=== PATIENT | male | born 1995 | race African-American/Black ===

== ENCOUNTER 2017-04-27 17:11 | Inpatient (IN) ==
[~2017-04-27 17:11] MED LIST: ONDANSETRON 4 MG/2 ML VIAL IV PRN
[2017-04-27] MEDS ORDERED: SODIUM CHLORIDE 0.9% 1,000 ML IV ONE (17:15)
[2017-04-27] MEDS ORDERED: SODIUM CHLORIDE 0.9% 250 ML IV PRN (17:16)
[2017-04-27] MEDS ORDERED: SODIUM CHLORIDE 0.9% IV PRN (17:29)
[2017-04-27] MEDS ORDERED: MAGNESIUM SULF RIDER 2 GM in PREMIX 1 EACH IV PRN (17:29)
[2017-04-27] MEDS ORDERED: POTASSIUM CHLORIDE RIDER 10 MEQ in PREMIX 1 EACH IV PRN (17:29)
[2017-04-27] MEDS ORDERED: SODIUM PHOSPHATE IV PRN (17:29)
[2017-04-27] MEDS ORDERED: DEXTROSE 50% 25 GM/50 ML VIAL IV PRN (17:29)
[2017-04-27] MEDS ORDERED: INSULIN REGULAR 100 UNIT/ML IV ONE (17:29)
[2017-04-27] MEDS ORDERED: MAGNESIUM SULF RIDER 4 GM in PREMIX 1 EACH IV PRN (17:29)
[2017-04-27] MEDS ORDERED: SODIUM BICARB INJ 100 MEQ in STERILE WATER INJ 400 ML IV PRN (17:29)
[2017-04-27] MEDS ORDERED: SODIUM CHLORIDE 0.9% 1,000 ML IV SCH ×2 (17:30→22:30)
[2017-04-27 17:52] LABS: ABG Base Excess -10.8 MMOL/L (-2.5-2.5); ABG HCO3 13.1 MMOL/L (20-26); ABG Oxygen Saturation 97.9 % (95-100); ABG PH 7.425 (7.35-7.45); ABG PO2 118.2 MM HG (80-95); ABG TCO2 13.7 MMOL/L (23-27)
[2017-04-27 17:54] LABS: ABG PCO2 20.4 MM HG (35-48)
[2017-04-27] MEDS: INSULIN REGULAR DRIP 100 ML IV SCH (18:06)
[2017-04-27] MEDS: SODIUM CHLORIDE 0.9% 1,000 ML IV SCH ×2 (19:20→21:23)
[2017-04-27 20:25] LABS: Hematocrit 9.8 VOL% (42.0-52.0); Hemoglobin 2.9 GM/DL (14.0-18.0)
[2017-04-27 20:31] LABS: INR 1.6; PT Patient Result 16.9 SECS
[2017-04-27 20:44] LABS: Alanine Aminotransferase 20 U/L (16-61); Albumin 1.5 G/DL (3.4-5.0); Alkaline Phosphatase 81 U/L (45-117); Aspartate Amino Transferase 20 U/L (0-37); Bilirubin,Total < 0.39 MG/DL (0.2-1.0); Blood Urea Nitrogen 41 MG/DL (7-18); Calcium 6.9 MG/DL (8.5-10.1); Osmolality,Calculated 311.5 MOS/KG (273-304); Phosphorous 3.8 MG/DL (2.5-4.9); Potassium 4.8 MMOL/L (3.5-5.1); Sodium 139 MMOL/L (136-145); Thyroid Stimulating Hormone 0.146 uIU/ml (0.358-3.74); Total Protein 4.7 G/DL (6.4-8.3)
[2017-04-27 20:46] LABS: Glucose 555 MG/DL (74-106)
[2017-04-27] MEDS: VANCOMYCIN INJ 750 MG in SODIUM CHLORIDE 0.9% 250 ML IV SCH (21:07)
[2017-04-27] MEDS: PANTOPRAZOLE 40 MG VIAL IV SCH (21:07)
[2017-04-27] MEDS: PIPERACILLIN/TAZOBACTAM 3,375 MG in SODIUM CHLORIDE 0.9% 100 ML IV SCH (21:54)
[2017-04-27 22:27] LABS: Apearance,Urine CLEAR (Clear); Bilirubin,Urine Negative (Negative); Blood, Urine Negative (Negative); Glucose,Urine (UA) >=500 mg/dL (Negative); Hyaline Casts,Urine 2 /LPF (0-3); Ketones,Urine 5 mg/dL (Negative); Nitrite,Urine Negative (Negative); Protein,Urine Negative; RBC,Urine <1 /HPF (0-4); Urine Color Straw (Yellow); Urine Specific Gravity 1.015 (1.001-1.035); Urine Urobilinogen < 2.0 EU/DL (0.2-1.0); WBC,Urine <1 /HPF (0-6)
[2017-04-28 01:52] LABS: Calcium 6.1 MG/DL (8.5-10.1); Osmolality,Calculated 323.4 MOS/KG (273-304); Potassium 4.4 MMOL/L (3.5-5.1)
[2017-04-28 02:05] LABS: Hematocrit 25.1 VOL% (42.0-52.0); Hemoglobin 8.6 GM/DL (14.0-18.0)
[2017-04-28] MEDS: SODIUM CHLOR 0.45% KCL 20 MEQ 20 MEQ/1,000 ML BAG IV SCH ×2 (04:34→09:15)
[2017-04-28 05:17] LABS: Basophils % 0.2 % (0.0-0.8); Hematocrit 21.1 VOL% (42.0-52.0); Hemoglobin 7.1 GM/DL (14.0-18.0); Immature Granulocytes % 1.4 %; Lymphocytes # 2.2 10*3/uL (1.4-4.0); Lymphocytes % 10.8 % (21.2-54.2); Mean Corpuscular HGB Conc 33.6 GM/DL (32-36); Mean Corpuscular Hemoglobin 27 PG (27-34); Mean Corpuscular Volume 80.8 FL (87-102); Monocytes # 1.4 10*3/uL (0.11-0.8); Monocytes % 6.9 % (1.7-12.7); Neutrophils # 16.7 10*3/uL (1.4-7.4); Neutrophils % 80.7 % (38.7-73.9); Platelet Count 247 T/CUMM (130-400); Red Blood Count 2.61 MC/CUMM (3.8-5.5); Red Cell Distribution Width 21.5 % (9.3-17.3); White Blood Count 20.7 T/CUMM (4-12)
[2017-04-28 05:54] LABS: Anisocytosis 1+; Band Neutrophils 3 % (0-10); Lymphocytes 5 % (20-55); Magnesium 1.9 MG/DL (1.8-2.4); Metamyelocytes 1 %; Myelocytes 2 %; Nucleated Red Blood Cells 1 (0-5); Phosphorous 2.3 MG/DL (2.5-4.9); Segmented Neutrophils 89 % (50-85); Total Cells Counted 100
[2017-04-28 05:55] LABS: Hypochromasia 1+; Target Cells Few
[2017-04-28 05:56] LABS: Schistocytes 1+
[2017-04-28 05:57] LABS: Platelet Estimate Adequate
[2017-04-28] MEDS: PIPERACILLIN/TAZOBACTAM 3,375 MG in SODIUM CHLORIDE 0.9% 100 ML IV SCH ×2 (06:18→13:03)
[2017-04-28 06:22] LABS: Calcium 6.2 MG/DL (8.5-10.1); Osmolality,Calculated 318.1 MOS/KG (273-304); Potassium 4.2 MMOL/L (3.5-5.1)
[2017-04-28] MEDS: DEXT 5% NACL 0.45% KCL 20 MEQ 20 MEQ/1,000 ML BAG IV SCH ×2 (09:00→16:03)
[2017-04-28] MEDS: PANTOPRAZOLE 40 MG VIAL IV SCH (09:16)
[2017-04-28] MEDS: VANCOMYCIN INJ 750 MG in SODIUM CHLORIDE 0.9% 250 ML IV SCH ×2 (09:16→22:09)
[2017-04-28] MEDS: POTASSIUM PHOS/SOD PHOS POWDER 250 MG PACK PO SCH ×2 (11:10→22:15)
[2017-04-28 11:17] LABS: Calcium 6.3 MG/DL (8.5-10.1); Osmolality,Calculated 297.3 MOS/KG (273-304); Potassium 4.1 MMOL/L (3.5-5.1)
[2017-04-28] MEDS: INSULIN REGULAR DRIP 100 ML IV SCH ×2 (13:11→21:38)
[2017-04-28 13:26] LABS: Hemoglobin 5.2 GM/DL (14.0-18.0)
[2017-04-28 13:27] LABS: Hematocrit 15.6 VOL% (42.0-52.0)
[2017-04-28] MEDS ORDERED: SODIUM CHLORIDE 0.9% 250 ML IV PRN (13:53)
[2017-04-28 13:56] LABS: Calcium 6.2 MG/DL (8.5-10.1); Osmolality,Calculated 291.4 MOS/KG (273-304); Potassium 3.9 MMOL/L (3.5-5.1)
[2017-04-28] MEDS ORDERED: MIDAZOLAM 2 MG/2 ML VIAL ONE ×2 (16:51→17:21)
[2017-04-28] MEDS ORDERED: fentaNYL 100 MCG/2 ML VIAL IV ONE (16:56)
[2017-04-28] MEDS ORDERED: MIDAZOLAM 2 MG/2 ML VIAL IV ONE (17:02)
[2017-04-28] MEDS ORDERED: fentaNYL 100 MCG/2 ML VIAL ONE (17:21)
[2017-04-28] MEDS ORDERED: POLYETHYLENE GLYCOL POWDER 255 GM BOTTLE PO ONE (18:00)
[2017-04-28] MEDS: SODIUM CHLORIDE 0.45% 1,000 ML IV SCH ×2 (18:26→22:04)
[2017-04-28] MEDS: DEXTROSE 50% 25 GM/50 ML VIAL IV PRN (18:56)
[2017-04-28 20:27] LABS: Hematocrit 20.5 VOL% (42.0-52.0)
[2017-04-28 20:55] LABS: Calcium 6.4 MG/DL (8.5-10.1); Osmolality,Calculated 280.8 MOS/KG (273-304); Potassium 4.1 MMOL/L (3.5-5.1)
[2017-04-28] MEDS ORDERED: MAGNESIUM CITRATE 300 ML BOTTLE PO ONE (21:00)
[2017-04-28] MEDS ORDERED: HYDROmorphone 2 MG/1 ML VIAL IV ONE (21:10)
[2017-04-28] MEDS: PANTOPRAZOLE INJ 200 MG in SODIUM CHLORIDE 0.9% 250 ML IV SCH (22:16)
[2017-04-28] MEDS ORDERED: GLUCAGON 1 MG VIAL IM PRN (23:22)
[2017-04-28] MEDS ORDERED: DEXTROSE 50% 25 GM/50 ML VIAL IV PRN (23:22)
[2017-04-28] MEDS ORDERED: HYDROmorphone 2 MG/1 ML VIAL IV PRN (23:24)
[2017-04-29] MEDS: PIPERACILLIN/TAZOBACTAM 3,375 MG in SODIUM CHLORIDE 0.9% 100 ML IV SCH ×3 (00:10→17:12)
[2017-04-29] MEDS: INSULIN REGULAR 100 UNIT/ML SUBCUT SCH ×6 (01:20→20:45)
[2017-04-29 07:00] LABS: Basophils % 0.3 % (0.0-0.8); Eosinophils # 0.1 10*3/uL (0.0-0.87); Eosinophils % 0.8 % (0.00-10.9); Hematocrit 30.8 VOL% (42.0-52.0); Hemoglobin 10.7 GM/DL (14.0-18.0); Immature Granulocytes Absolute 0.14 #; Lymphocytes # 1.6 10*3/uL (1.4-4.0); Lymphocytes % 11.5 % (21.2-54.2); Mean Corpuscular HGB Conc 34.7 GM/DL (32-36); Mean Corpuscular Hemoglobin 28 PG (27-34); Mean Corpuscular Volume 80.8 FL (87-102); Mean Platelet Volume 9.7 FL (9.6-12.0); Monocytes # 0.7 10*3/uL (0.11-0.8); Monocytes % 4.7 % (1.7-12.7); NRBC # 0.22 10*3/uL; Neutrophils # 11.7 10*3/uL (1.4-7.4); Neutrophils % 81.7 % (38.7-73.9); Platelet Count 234 T/CUMM (130-400); Red Blood Count 3.81 MC/CUMM (3.8-5.5); Red Cell Distribution Width 17.3 % (9.3-17.3); White Blood Count 14.3 T/CUMM (4-12)
[2017-04-29 07:01] LABS: Hematocrit 31.1 VOL% (42.0-52.0); Hemoglobin 10.8 GM/DL (14.0-18.0)
[2017-04-29 07:34] LABS: Albumin 1.7 G/DL (3.4-5.0); Bilirubin,Total 0.4 MG/DL (0.2-1.0); Calcium 7.3 MG/DL (8.5-10.1); Osmolality,Calculated 279.5 MOS/KG (273-304); Potassium 3.9 MMOL/L (3.5-5.1); Total Protein 4.6 G/DL (6.4-8.3)
[2017-04-29] MEDS: SODIUM CHLORIDE 0.45% 1,000 ML IV SCH ×3 (09:12→23:35)
[2017-04-29] MEDS: VANCOMYCIN INJ 750 MG in SODIUM CHLORIDE 0.9% 250 ML IV SCH ×2 (10:04→21:00)
[2017-04-29] MEDS: INSULIN GLARGINE 100 UNIT/ML SUBCUT SCH ×2 (10:07→20:44)
[2017-04-29 13:56] LABS: Calcium 6.9 MG/DL (8.5-10.1); Osmolality,Calculated 285.4 MOS/KG (273-304)
[2017-04-29] MEDS ORDERED: LIDOCAINE 100 MG/5 ML SYRINGE ONE (15:10)
[2017-04-29] MEDS ORDERED: PROPOFOL 200 MG/20 ML VIAL IV ONE (15:10)
[2017-04-29] MEDS: PROPYLTHIOURACIL 50 MG TABLET PO SCH ×2 (16:20→20:44)
[2017-04-29] MEDS: SODIUM BICARBONATE 650 MG TABLET PO SCH ×2 (16:20→20:44)
[2017-04-30] MEDS: PIPERACILLIN/TAZOBACTAM 3,375 MG in SODIUM CHLORIDE 0.9% 100 ML IV SCH ×3 (00:59→16:53)
[2017-04-30] MEDS: INSULIN REGULAR 100 UNIT/ML SUBCUT SCH ×7 (01:29→23:50)
[2017-04-30] MEDS: SODIUM CHLORIDE 0.45% 1,000 ML IV SCH ×3 (03:50→17:59)
[2017-04-30] MEDS: PANTOPRAZOLE INJ 200 MG in SODIUM CHLORIDE 0.9% 250 ML IV SCH (05:00)
[2017-04-30 07:33] LABS: Basophils # 0.1 10*3/uL (0.0-0.2); Basophils % 0.3 % (0.0-0.8); Eosinophils # 0.1 10*3/uL (0.0-0.87); Eosinophils % 0.7 % (0.00-10.9); Hemoglobin 10.4 GM/DL (14.0-18.0); Immature Granulocytes % 0.8 %; Immature Granulocytes Absolute 0.14 #; Lymphocytes # 1.7 10*3/uL (1.4-4.0); Lymphocytes % 9.2 % (21.2-54.2); Mean Corpuscular HGB Conc 34.7 GM/DL (32-36); Mean Corpuscular Hemoglobin 28 PG (27-34); Mean Corpuscular Volume 79.8 FL (87-102); Mean Platelet Volume 10.7 FL (9.6-12.0); Monocytes % 5.7 % (1.7-12.7); NRBC # 0.12 10*3/uL; Neutrophils # 15.1 10*3/uL (1.4-7.4); Neutrophils % 83.3 % (38.7-73.9); Platelet Count 284 T/CUMM (130-400); Red Blood Count 3.76 MC/CUMM (3.8-5.5); Red Cell Distribution Width 17.5 % (9.3-17.3); White Blood Count 18.1 T/CUMM (4-12)
[2017-04-30 07:55] LABS: Calcium 7.1 MG/DL (8.5-10.1); Osmolality,Calculated 280.8 MOS/KG (273-304); Potassium 3.8 MMOL/L (3.5-5.1)
[2017-04-30] MEDS: SODIUM BICARBONATE 650 MG TABLET PO SCH ×3 (09:11→21:03)
[2017-04-30] MEDS: PROPYLTHIOURACIL 50 MG TABLET PO SCH ×3 (09:11→21:03)
[2017-04-30] MEDS: INSULIN GLARGINE 100 UNIT/ML SUBCUT SCH ×3 (09:12→21:04)
[2017-04-30] MEDS: VANCOMYCIN INJ 750 MG in SODIUM CHLORIDE 0.9% 250 ML IV SCH (13:17)
[2017-05-01] MEDS: VANCOMYCIN INJ 750 MG in SODIUM CHLORIDE 0.9% 250 ML IV SCH ×2 (00:30→11:46)
[2017-05-01] MEDS: PIPERACILLIN/TAZOBACTAM 3,375 MG in SODIUM CHLORIDE 0.9% 100 ML IV SCH ×2 (01:56→08:48)
[2017-05-01 05:30] LABS: Basophils # 0.1 10*3/uL (0.0-0.2); Basophils % 0.3 % (0.0-0.8); Eosinophils # 0.3 10*3/uL (0.0-0.87); Eosinophils % 1.7 % (0.00-10.9); Hematocrit 28.4 VOL% (42.0-52.0); Immature Granulocytes % 0.8 %; Immature Granulocytes Absolute 0.13 #; Lymphocytes # 1.7 10*3/uL (1.4-4.0); Lymphocytes % 10.4 % (21.2-54.2); Mean Corpuscular HGB Conc 35.2 GM/DL (32-36); Mean Corpuscular Hemoglobin 28 PG (27-34); Mean Corpuscular Volume 79.3 FL (87-102); Monocytes % 5.9 % (1.7-12.7); NRBC # 0.05 10*3/uL; Neutrophils # 12.9 10*3/uL (1.4-7.4); Neutrophils % 80.9 % (38.7-73.9); Platelet Count 305 T/CUMM (130-400); Red Blood Count 3.58 MC/CUMM (3.8-5.5); Red Cell Distribution Width 17.6 % (9.3-17.3)
[2017-05-01 06:09] LABS: Alanine Aminotransferase 68 U/L (16-61); Albumin 1.6 G/DL (3.4-5.0); Alkaline Phosphatase 79 U/L (45-117); Aspartate Amino Transferase 31 U/L (0-37); Bilirubin,Total < 0.39 MG/DL (0.2-1.0); Blood Urea Nitrogen 8 MG/DL (7-18); Calcium 7.2 MG/DL (8.5-10.1); Glucose 52 MG/DL (74-106); Osmolality,Calculated 271.5 MOS/KG (273-304); Phosphorous 1.9 MG/DL (2.5-4.9); Potassium 3.7 MMOL/L (3.5-5.1); Sodium 139 MMOL/L (136-145); Total Protein 4.6 G/DL (6.4-8.3)
[2017-05-01] MEDS: DEXTROSE 50% 25 GM/50 ML VIAL IV PRN (06:48)
[2017-05-01] MEDS: PANTOPRAZOLE INJ 200 MG in SODIUM CHLORIDE 0.9% 250 ML IV SCH (06:49)
[2017-05-01] MEDS: INSULIN REGULAR 100 UNIT/ML SUBCUT SCH ×3 (07:29→12:34)
[2017-05-01] MEDS: SODIUM CHLORIDE 0.45% 1,000 ML IV SCH ×2 (07:30→11:10)
[2017-05-01] MEDS: SODIUM BICARBONATE 650 MG TABLET PO SCH (08:44)
[2017-05-01] MEDS: PROPYLTHIOURACIL 50 MG TABLET PO SCH (08:44)
[2017-05-01] MEDS: INSULIN GLARGINE 100 UNIT/ML SUBCUT SCH (08:44)
[2017-05-01 13:12] VITALS: BP 100/72
== END 2017-05-01 13:35 | disposition home or self-care (01) | DRG 871 ==
LOC: N.ICU → SUATTDRO 17:11 → N.5E 04-29 14:53
PROVIDERS: ADMIT Internal Medicine; ATTEND Internal Medicine Nephrology
PROC: IRAGMES (2017-04-28 17:05)
PROC: COLONBX (2017-04-29 06:35)

== ENCOUNTER 2017-05-02 07:36 | Inpatient (IN) ==
[2017-05-02] MEDS ORDERED: SODIUM CHLORIDE 0.9% 250 ML IV PRN ×3 (07:59→17:48)
[2017-05-02] MEDS ORDERED: ONDANSETRON 4 MG/2 ML VIAL IV STA (08:00)
[2017-05-02 08:14] LABS: Eosinophils # 0.1 10*3/uL (0.0-0.87); Eosinophils % 0.5 % (0.00-10.9); Immature Granulocytes % 3.7 %; Immature Granulocytes Absolute 0.54 #; Lymphocytes # 1.3 10*3/uL (1.4-4.0); Lymphocytes % 8.7 % (21.2-54.2); Mean Corpuscular HGB Conc 33.9 GM/DL (32-36); Mean Corpuscular Hemoglobin 29 PG (27-34); Mean Corpuscular Volume 83.8 FL (87-102); Mean Platelet Volume 10.2 FL (9.6-12.0); Monocytes # 0.9 10*3/uL (0.11-0.8); Monocytes % 5.9 % (1.7-12.7); NRBC # 0.04 10*3/uL; Neutrophils # 11.9 10*3/uL (1.4-7.4); Neutrophils % 81.2 % (38.7-73.9); Platelet Count 184 T/CUMM (130-400); Red Cell Distribution Width 18.2 % (9.3-17.3); White Blood Count 14.6 T/CUMM (4-12)
[2017-05-02 08:25] LABS: INR 1.3; PT Patient Result 13.4 SECS
[2017-05-02] MEDS ORDERED: SODIUM CHLORIDE 0.9% 1,000 ML IV STA (08:32)
[2017-05-02] MEDS ORDERED: ONDANSETRON 4 MG/2 ML VIAL ONE (08:35)
[2017-05-02 08:38] LABS: Osmolality,Calculated 287.7 MOS/KG (273-304); Potassium 3.4 MMOL/L (3.5-5.1)
[2017-05-02 08:47] LABS: Hematocrit 10.9 VOL% (42.0-52.0); Hemoglobin 3.7 GM/DL (14.0-18.0); Partial Thromboplastin Time 43.4 SECS (0-40)
[2017-05-02 08:48] LABS: Calcium 5.5 MG/DL (8.5-10.1)
[2017-05-02 09:16] LABS: Band Neutrophils 3 % (0-10); Burr Cells Slight; Eosinophils 3 % (0-10); Hypochromasia 1+; Lymphocytes 14 % (20-55); Ovalocytes Slight; Platelet Estimate Normal; Segmented Neutrophils 76 % (50-85); Total Cells Counted 100
[2017-05-02] MEDS ORDERED: ZALEPLON 5 MG CAPSULE PO PRN (09:19)
[2017-05-02] MEDS ORDERED: guaiFENesin/DM ER 600-30 MG TABLET PO PRN (09:19)
[2017-05-02] MEDS ORDERED: PROMETHAZINE 25 MG/1 ML VIAL IM PRN (09:19)
[2017-05-02] MEDS ORDERED: ONDANSETRON 4 MG/2 ML VIAL IV PRN (09:19)
[2017-05-02] MEDS ORDERED: diphenhydrAMINE CAP 25 MG CAPSULE PO PRN (09:19)
[2017-05-02] MEDS ORDERED: ACETAMINOPHEN 325 MG TABLET PO PRN ×2 (09:19)
[2017-05-02] MEDS ORDERED: GLUCAGON 1 MG VIAL IM PRN (09:26)
[2017-05-02] MEDS: SODIUM CHLORIDE 0.9% 1,000 ML IV SCH ×3 (09:30→21:20)
[2017-05-02 11:35] LABS: Hematocrit 23.1 VOL% (42.0-52.0); Hemoglobin 8.1 GM/DL (14.0-18.0)
[2017-05-02 12:03] LABS: CKMB % 5.3 %; Troponin I Only 0.022 NG/ML (0.00-0.045)
[2017-05-02] MEDS: PANTOPRAZOLE 40 MG VIAL IV SCH ×2 (13:54→21:36)
[2017-05-02] MEDS ORDERED: SODIUM CHLORIDE 0.9% 1,000 ML IV ONE ×3 (15:15→17:30)
[2017-05-02] MEDS ORDERED: VANCOMYCIN INJ 1,000 MG in SODIUM CHLORIDE 0.9% 250 ML IV SCH (16:00)
[2017-05-02 16:24] LABS: Apearance,Urine CLOUDY (Clear); Bilirubin,Urine Negative (Negative); Blood, Urine Moderate mg/dL (Negative); Glucose,Urine (UA) 50 mg/dL (Negative); Ketones,Urine Negative (Negative); Mucus,Urine Occasional /LPF (Occasional); Nitrite,Urine Negative (Negative); Protein,Urine 100 MG/DL; RBC,Urine 49 /HPF (0-4); Squamous Epithelial Cell,Urine Occasional /HPF (0-10); Urine Color Yellow (Yellow); Urine Specific Gravity 1.011 (1.001-1.035); Urine Urobilinogen < 2.0 EU/DL (0.2-1.0); WBC,Urine 628 /HPF (0-6)
[2017-05-02] MEDS ORDERED: LORazepam 2 MG/1 ML VIAL ONE (17:01)
[2017-05-02] MEDS ORDERED: EPINEPHrine 1 MG/10 ML SYRINGE ONE (17:02)
[2017-05-02] MEDS ORDERED: SUCCINYLCHOLINE 200 MG/10 ML VIAL ONE (17:07)
[2017-05-02] MEDS ORDERED: PROPOFOL 1,000 MG/100 ML BOTTLE IV ONE ×2 (17:14→20:05)
[2017-05-02 17:49] LABS: ABG Base Excess -24.5 MMOL/L (-2.5-2.5); ABG HCO3 6.3 MMOL/L (20-26); ABG Oxygen Saturation 34.3 % (95-100); ABG PCO2 50.1 MM HG (35-48); ABG TCO2 8.9 MMOL/L (23-27)
[2017-05-02 17:54] LABS: ABG PH 6.823 (7.35-7.45); ABG PO2 28.9 MM HG (80-95)
[2017-05-02] MEDS ORDERED: PHENYLEPHRINE 1 MG/10 ML SYRINGE IV ONE ×2 (18:05)
[2017-05-02] MEDS ORDERED: LIDOCAINE 1% 5 ML VIAL ONE ×2 (18:05)
[2017-05-02] MEDS ORDERED: ETOMIDATE 20 MG/10 ML VIAL IV ONE ×2 (18:05)
[2017-05-02] MEDS ORDERED: PROPOFOL 200 MG/20 ML VIAL IV ONE ×2 (18:05)
[2017-05-02] MEDS ORDERED: CALCIUM CHLORIDE 1,000 MG/10 ML VIAL IV ONE ×2 (18:05)
[2017-05-02] MEDS ORDERED: MIDAZOLAM 2 MG/2 ML VIAL ONE (19:16)
[2017-05-02] MEDS ORDERED: MIDAZOLAM 10 MG/2 ML VIAL ONE (19:16)
[2017-05-02] MEDS: PHENYLEPHRINE DRIP 40 MG/250 ML PREMIX IV SCH (20:32)
[2017-05-02 20:34] LABS: ABG Base Excess -17.7 MMOL/L (-2.5-2.5); ABG HCO3 11.3 MMOL/L (20-26); ABG Oxygen Saturation 99.9 % (95-100); ABG PCO2 26.5 MM HG (35-48); ABG TCO2 9.1 MMOL/L (23-27)
[2017-05-02 20:37] LABS: ABG PH 7.175 (7.35-7.45)
[2017-05-02] MEDS: INSULIN LISPRO 100 UNIT/ML SUBCUT SCH (20:38)
[2017-05-02] MEDS: PROPOFOL 1,000 MG/100 ML BOTTLE IV SCH (21:19)
[2017-05-02] MEDS: PIPERACILLIN/TAZOBACTAM 3,375 MG in SODIUM CHLORIDE 0.9% 100 ML IV SCH (21:20)
[2017-05-02] MEDS: VANCOMYCIN INJ 1,000 MG in SODIUM CHLORIDE 0.9% 250 ML IV SCH (21:21)
[2017-05-03] MEDS: METOCLOPRAMIDE 10 MG/2 ML VIAL IV SCH ×4 (00:14→18:30)
[2017-05-03] MEDS: PROPOFOL 1,000 MG/100 ML BOTTLE IV SCH ×6 (00:30→21:19)
[2017-05-03] MEDS: PIPERACILLIN/TAZOBACTAM 3,375 MG in SODIUM CHLORIDE 0.9% 100 ML IV SCH ×3 (03:32→18:31)
[2017-05-03] MEDS: VANCOMYCIN INJ 1,000 MG in SODIUM CHLORIDE 0.9% 250 ML IV SCH ×3 (03:32→18:30)
[2017-05-03 03:50] LABS: Basophils # 0.1 10*3/uL (0.0-0.2); Basophils % 0.3 % (0.0-0.8); Eosinophils # 0.1 10*3/uL (0.0-0.87); Eosinophils % 0.5 % (0.00-10.9); Hematocrit 40.6 VOL% (42.0-52.0); Immature Granulocytes Absolute 0.62 #; Lymphocytes # 2.4 10*3/uL (1.4-4.0); Lymphocytes % 7.9 % (21.2-54.2); Mean Corpuscular HGB Conc 34.5 GM/DL (32-36); Mean Corpuscular Hemoglobin 30 PG (27-34); Mean Corpuscular Volume 86.2 FL (87-102); Mean Platelet Volume 11.3 FL (9.6-12.0); Monocytes # 2.3 10*3/uL (0.11-0.8); Monocytes % 7.7 % (1.7-12.7); NRBC # 0.36 10*3/uL; Neutrophils # 24.9 10*3/uL (1.4-7.4); Neutrophils % 81.6 % (38.7-73.9); Platelet Count 145 T/CUMM (130-400); Red Blood Count 4.71 MC/CUMM (3.8-5.5); Red Cell Distribution Width 14.5 % (9.3-17.3); White Blood Count 30.5 T/CUMM (4-12)
[2017-05-03 03:52] LABS: ABG Base Excess -16.1 MMOL/L (-2.5-2.5); ABG HCO3 12.7 MMOL/L (20-26); ABG Oxygen Saturation 99.6 % (95-100); ABG PCO2 23.7 MM HG (35-48); ABG PH 7.241 (7.35-7.45)
[2017-05-03 04:08] LABS: Potassium 3.9 MMOL/L (3.5-5.1)
[2017-05-03 04:14] LABS: INR 1.2; PT Patient Result 12.9 SECS
[2017-05-03] MEDS: PHENYLEPHRINE DRIP 40 MG/250 ML PREMIX IV SCH ×3 (04:45→16:15)
[2017-05-03 05:06] LABS: Band Neutrophils 3 % (0-10); Burr Cells Slight; Eosinophils 1 % (0-10); Giant Platelets Few; Hypochromasia Slight; Lymphocytes 8 % (20-55); Nucleated Red Blood Cells 3 (0-5); Platelet Estimate Normal; Segmented Neutrophils 84 % (50-85); Total Cells Counted 100
[2017-05-03] MEDS: SODIUM CHLORIDE 0.9% 1,000 ML IV SCH ×2 (05:36→10:27)
[2017-05-03] MEDS: INSULIN LISPRO 100 UNIT/ML SUBCUT SCH ×2 (10:25→17:59)
[2017-05-03] MEDS: PANTOPRAZOLE 40 MG VIAL IV SCH ×2 (10:26→21:29)
[2017-05-03] MEDS: DEXTROSE 50% 25 GM/50 ML VIAL IV PRN ×3 (11:16→21:24)
[2017-05-03] MEDS ORDERED: MORPHINE 2 MG/1 ML SYRINGE IV PRN (18:17)
[2017-05-03] MEDS: FLUCONAZOLE INJ 100 MG in IV BAG 1 EACH IV SCH (18:41)
[2017-05-04] MEDS: METOCLOPRAMIDE 10 MG/2 ML VIAL IV SCH ×5 (00:51→17:55)
[2017-05-04] MEDS: DEXTROSE 50% 25 GM/50 ML VIAL IV PRN (01:50)
[2017-05-04] MEDS: PIPERACILLIN/TAZOBACTAM 3,375 MG in SODIUM CHLORIDE 0.9% 100 ML IV SCH ×2 (02:23→09:00)
[2017-05-04] MEDS: PROPOFOL 1,000 MG/100 ML BOTTLE IV SCH ×5 (02:55→22:05)
[2017-05-04] MEDS: DEXTROSE 5% NACL 0.45% 1,000 ML IV SCH ×2 (02:58→22:12)
[2017-05-04] MEDS: COLLAGENASE OINT 30 GM TUBE TOP SCH ×2 (04:15→08:52)
[2017-05-04 05:12] LABS: ABG Base Excess -13.5 MMOL/L (-2.5-2.5); ABG HCO3 14.1 MMOL/L (20-26); ABG Oxygen Saturation 99.7 % (95-100); ABG PCO2 21.3 MM HG (35-48); ABG PH 7.326 (7.35-7.45); ABG TCO2 10.1 MMOL/L (23-27)
[2017-05-04 05:16] LABS: Basophils # 0.1 10*3/uL (0.0-0.2); Basophils % 0.5 % (0.0-0.8); Eosinophils # 0.6 10*3/uL (0.0-0.87); Eosinophils % 2.5 % (0.00-10.9); Hematocrit 32.5 VOL% (42.0-52.0); Hemoglobin 11.2 GM/DL (14.0-18.0); Immature Granulocytes % 1.3 %; Lymphocytes # 2.9 10*3/uL (1.4-4.0); Lymphocytes % 12.1 % (21.2-54.2); Mean Corpuscular HGB Conc 34.5 GM/DL (32-36); Mean Corpuscular Hemoglobin 30 PG (27-34); Mean Corpuscular Volume 86.7 FL (87-102); Mean Platelet Volume 10.5 FL (9.6-12.0); Monocytes # 1.6 10*3/uL (0.11-0.8); Monocytes % 6.7 % (1.7-12.7); NRBC # 0.06 10*3/uL; Neutrophils # 18.3 10*3/uL (1.4-7.4); Neutrophils % 76.9 % (38.7-73.9); Platelet Count 227 T/CUMM (130-400); Red Blood Count 3.75 MC/CUMM (3.8-5.5); Red Cell Distribution Width 15.7 % (9.3-17.3); White Blood Count 23.7 T/CUMM (4-12)
[2017-05-04 05:36] LABS: Calcium 6.5 MG/DL (8.5-10.1); Osmolality,Calculated 300.7 MOS/KG (273-304); Potassium 3.5 MMOL/L (3.5-5.1)
[2017-05-04 05:43] LABS: Band Neutrophils 2 % (0-10); Eosinophils 3 % (0-10); Lymphocytes 10 % (20-55); Platelet Estimate Normal; Segmented Neutrophils 76 % (50-85); Total Cells Counted 100
[2017-05-04] MEDS: PHENYLEPHRINE DRIP 40 MG/250 ML PREMIX IV SCH ×3 (07:06→23:39)
[2017-05-04] MEDS: INSULIN LISPRO 100 UNIT/ML SUBCUT SCH ×2 (08:51→16:59)
[2017-05-04] MEDS: PANTOPRAZOLE 40 MG VIAL IV SCH ×2 (08:52→22:10)
[2017-05-04] MEDS ORDERED: VANCOMYCIN INJ 1,000 MG in SODIUM CHLORIDE 0.9% 250 ML IV SCH (12:00)
[2017-05-04] MEDS: FLUCONAZOLE INJ 100 MG in IV BAG 1 EACH IV SCH (17:55)
[2017-05-04] MEDS ORDERED: NOREPINEPHRINE 4 MG/4 ML VIAL IV ONE ×3 (23:25→23:31)
[2017-05-04 23:32] LABS: Hematocrit 22.5 VOL% (42.0-52.0); Hemoglobin 7.6 GM/DL (14.0-18.0)
[2017-05-04] MEDS: NOREPINEPHRINE 16 MG in SODIUM CHLORIDE 0.9% 234 ML IV SCH (23:35)
[2017-05-04] MEDS ORDERED: SODIUM CHLORIDE 0.9% 250 ML IV ONE (23:40)
[2017-05-04] MEDS ORDERED: SODIUM CHLORIDE 0.9% 1,000 ML IV ONE (23:44)
[2017-05-05] MEDS: SODIUM CHLORIDE 0.9% 1,000 ML IV PRN ×13 (00:18→05:38)
[2017-05-05] MEDS ORDERED: fentaNYL 100 MCG/2 ML VIAL IV ONE (00:30)
[2017-05-05] MEDS: PHENYLEPHRINE INJ 160 MG in SODIUM CHLORIDE 0.9% 234 ML IV SCH (01:31)
[2017-05-05] MEDS ORDERED: SODIUM CHLORIDE 0.9% 250 ML IV PRN ×5 (01:32→04:21)
[2017-05-05] MEDS ORDERED: CALCIUM GLUCONATE 2,000 MG in SODIUM CHLORIDE 0.9% 100 ML IV ONE (02:38)
[2017-05-05] MEDS ORDERED: CALCIUM GLUCONATE 1,000 MG/10 ML VIAL IV ONE (02:39)
[2017-05-05] MEDS ORDERED: CALCIUM CHLORIDE 1,000 MG/10 ML SYRINGE IV ONE (02:41)
[2017-05-05] MEDS ORDERED: MIDAZOLAM 2 MG/2 ML VIAL ONE (02:44)
[2017-05-05 02:51] LABS: ABG Base Excess -21.4 MMOL/L (-2.5-2.5); ABG HCO3 8.4 MMOL/L (20-26); ABG Oxygen Saturation 98.9 % (95-100); ABG PCO2 24.5 MM HG (35-48); ABG TCO2 7.1 MMOL/L (23-27)
[2017-05-05] MEDS ORDERED: SODIUM BICARBONATE 50 MEQ/50 ML SYRINGE IV ONE ×3 (02:57→05:54)
[2017-05-05] MEDS ORDERED: ROCURONIUM 100 MG/10 ML VIAL IV ONE (02:59)
[2017-05-05 03:00] LABS: ABG PH 7.075 (7.35-7.45)
[2017-05-05 03:11] LABS: Blood Urea Nitrogen 11 MG/DL (7-18); Glucose 263 MG/DL (74-106); Osmolality,Calculated 314.3 MOS/KG (273-304); Potassium 4.5 MMOL/L (3.5-5.1); Sodium 155 MMOL/L (136-145)
[2017-05-05] MEDS ORDERED: SODIUM BICARBONATE 50 MEQ/50 ML VIAL IV ONE ×2 (03:14)
[2017-05-05 03:18] LABS: Calcium < 5.0 MG/DL (8.5-10.1)
[2017-05-05] MEDS ORDERED: CALCIUM GLUCONATE 2,000 MG in SODIUM CHLORIDE 0.9% 100 ML IV STA (03:19)
[2017-05-05 03:33] LABS: INR 2.7
[2017-05-05] MEDS ORDERED: ALBUMIN 5% 25 GM in PREMIX 1 EACH IV ONE (03:58)
[2017-05-05 04:18] LABS: PT Patient Result 27.4 SECS
[2017-05-05 04:20] LABS: Partial Thromboplastin Time > 320.0 SECS (0-40)
[2017-05-05] MEDS: VASOPRESSIN 100 UNITS in SODIUM CHLORIDE 0.9% 95 ML IV SCH ×5 (06:00→23:25)
[2017-05-05] MEDS ORDERED: PHYTONADIONE 10 MG/1 ML AMP SUBCUT ONE (06:17)
[2017-05-05 06:52] LABS: ABG Base Excess -16.7 MMOL/L (-2.5-2.5); ABG HCO3 11.3 MMOL/L (20-26); ABG Oxygen Saturation 99.9 % (95-100); ABG PCO2 29.3 MM HG (35-48); ABG TCO2 10.7 MMOL/L (23-27)
[2017-05-05 06:54] LABS: ABG PH 7.167 (7.35-7.45)
[2017-05-05] MEDS: PROPOFOL 1,000 MG/100 ML BOTTLE IV SCH ×2 (07:42→23:30)
[2017-05-05] MEDS: SODIUM BICARB INJ 150 MEQ in STERILE WATER INJ 850 ML IV SCH ×3 (07:46→18:15)
[2017-05-05] MEDS: PANTOPRAZOLE INJ 200 MG in SODIUM CHLORIDE 0.9% 250 ML IV SCH (08:08)
[2017-05-05 08:55] LABS: Eosinophils % 0.1 % (0.00-10.9); Hematocrit 11.4 VOL% (42.0-52.0); Immature Granulocytes % 5.5 %; Immature Granulocytes Absolute 0.43 #; Lymphocytes # 1.4 10*3/uL (1.4-4.0); Lymphocytes % 18.3 % (21.2-54.2); Mean Corpuscular HGB Conc 32.5 GM/DL (32-36); Mean Corpuscular Hemoglobin 32 PG (27-34); Mean Corpuscular Volume 98.3 FL (87-102); Mean Platelet Volume 11.2 FL (9.6-12.0); Monocytes # 0.5 10*3/uL (0.11-0.8); Monocytes % 5.9 % (1.7-12.7); NRBC # 0.04 10*3/uL; Neutrophils # 5.5 10*3/uL (1.4-7.4); Neutrophils % 70.2 % (38.7-73.9); Platelet Count 47 T/CUMM (130-400); Red Blood Count 1.16 MC/CUMM (3.8-5.5); Red Cell Distribution Width 12.7 % (9.3-17.3); White Blood Count 7.8 T/CUMM (4-12)
[2017-05-05 08:58] LABS: Hemoglobin 3.7 GM/DL (14.0-18.0)
[2017-05-05 08:58] LABS: Potassium 3.9 MMOL/L (3.5-5.1)
[2017-05-05 09:04] LABS: Calcium 5.1 MG/DL (8.5-10.1)
[2017-05-05] MEDS: METOCLOPRAMIDE 10 MG/2 ML VIAL IV SCH ×4 (09:15→17:52)
[2017-05-05] MEDS: PIPERACILLIN/TAZOBACTAM 3,375 MG in SODIUM CHLORIDE 0.9% 100 ML IV SCH ×3 (09:30→20:55)
[2017-05-05 09:39] LABS: INR 2.7; PT Patient Result 27.4 SECS
[2017-05-05 09:41] LABS: Fibrinogen Quant Value 50 MG% (200-400); Partial Thromboplastin Time > 320.0 SECS (0-40)
[2017-05-05] MEDS: NOREPINEPHRINE 16 MG in SODIUM CHLORIDE 0.9% 234 ML IV SCH (09:44)
[2017-05-05] MEDS: SODIUM BICARB INJ 100 MEQ in DEXTROSE 5% 1,000 ML IV SCH ×2 (09:49→20:48)
[2017-05-05] MEDS: INSULIN LISPRO 100 UNIT/ML SUBCUT SCH ×2 (10:06→17:52)
[2017-05-05] MEDS: COLLAGENASE OINT 30 GM TUBE TOP SCH (10:06)
[2017-05-05] MEDS: MORPHINE 2 MG/1 ML SYRINGE IV PRN ×2 (10:51→18:34)
[2017-05-05 14:02] LABS: Hematocrit 10.2 VOL% (42.0-52.0)
[2017-05-05 14:10] LABS: Hemoglobin 3.5 GM/DL (14.0-18.0)
[2017-05-05] MEDS: FLUCONAZOLE INJ 100 MG in IV BAG 1 EACH IV SCH (17:52)
[2017-05-06] MEDS: PHENYLEPHRINE INJ 160 MG in SODIUM CHLORIDE 0.9% 234 ML IV SCH (01:22)
[2017-05-06] MEDS: METOCLOPRAMIDE 10 MG/2 ML VIAL IV SCH ×4 (01:26→17:31)
[2017-05-06] MEDS: PANTOPRAZOLE INJ 200 MG in SODIUM CHLORIDE 0.9% 250 ML IV SCH ×2 (01:29→04:09)
[2017-05-06] MEDS: NOREPINEPHRINE 16 MG in SODIUM CHLORIDE 0.9% 234 ML IV SCH (01:30)
[2017-05-06] MEDS: VASOPRESSIN 100 UNITS in SODIUM CHLORIDE 0.9% 95 ML IV SCH ×5 (03:40→20:01)
[2017-05-06] MEDS: PIPERACILLIN/TAZOBACTAM 3,375 MG in SODIUM CHLORIDE 0.9% 100 ML IV SCH ×3 (04:05→20:19)
[2017-05-06] MEDS: SODIUM BICARB INJ 150 MEQ in STERILE WATER INJ 850 ML IV SCH ×4 (04:05→23:50)
[2017-05-06 06:42] LABS: ABG Base Excess -4.9 MMOL/L (-2.5-2.5); ABG HCO3 20.3 MMOL/L (20-26); ABG Oxygen Saturation 96.5 % (95-100); ABG PCO2 39.8 MM HG (35-48); ABG PH 7.323 (7.35-7.45); ABG PO2 77.1 MM HG (80-95); ABG TCO2 20.5 MMOL/L (23-27)
[2017-05-06 06:49] LABS: Eosinophils # 0.1 10*3/uL (0.0-0.87); Eosinophils % 0.6 % (0.00-10.9); Immature Granulocytes % 0.8 %; Lymphocytes # 0.8 10*3/uL (1.4-4.0); Lymphocytes % 6.2 % (21.2-54.2); Mean Corpuscular HGB Conc 36.4 GM/DL (32-36); Mean Corpuscular Hemoglobin 32 PG (27-34); Mean Corpuscular Volume 88.4 FL (87-102); Mean Platelet Volume 12.1 FL (9.6-12.0); Monocytes # 0.6 10*3/uL (0.11-0.8); Monocytes % 4.1 % (1.7-12.7); Neutrophils # 11.7 10*3/uL (1.4-7.4); Neutrophils % 88.3 % (38.7-73.9); Platelet Count 84 T/CUMM (130-400); Red Blood Count 1.12 MC/CUMM (3.8-5.5); Red Cell Distribution Width 13.7 % (9.3-17.3); White Blood Count 13.3 T/CUMM (4-12)
[2017-05-06 06:51] LABS: Hematocrit 9.9 VOL% (42.0-52.0); Hemoglobin 3.6 GM/DL (14.0-18.0)
[2017-05-06 06:53] LABS: INR 1.2
[2017-05-06] MEDS ORDERED: FUROSEMIDE 20 MG/2 ML VIAL IV ONE ×3 (07:02→19:30)
[2017-05-06 07:14] LABS: Alanine Aminotransferase 341 U/L (16-61); Albumin 0.8 G/DL (3.4-5.0); Alkaline Phosphatase 38 U/L (45-117); Aspartate Amino Transferase 647 U/L (0-37); Bilirubin,Total < 0.39 MG/DL (0.2-1.0); Blood Urea Nitrogen 15 MG/DL (7-18); Glucose 188 MG/DL (74-106); Osmolality,Calculated 310.4 MOS/KG (273-304); Sodium 154 MMOL/L (136-145); Total Protein < 2.0 G/DL (6.4-8.3)
[2017-05-06 07:17] LABS: Calcium 5.1 MG/DL (8.5-10.1)
[2017-05-06 08:00] LABS: Band Neutrophils 3 % (0-10); Giant Platelets Few; Hypochromasia 1+; Lymphocytes 5 % (20-55); Platelet Estimate Decreased; Segmented Neutrophils 87 % (50-85); Total Cells Counted 100
[2017-05-06] MEDS: SODIUM BICARB INJ 100 MEQ in DEXTROSE 5% 1,000 ML IV SCH (08:42)
[2017-05-06] MEDS: INSULIN LISPRO 100 UNIT/ML SUBCUT SCH ×2 (09:17→16:25)
[2017-05-06] MEDS: COLLAGENASE OINT 30 GM TUBE TOP SCH (09:18)
[2017-05-06 09:38] LABS: HIV Antigen/Antibody Result Nonreactive (Nonreactive)
[2017-05-06] MEDS: MORPHINE 2 MG/1 ML SYRINGE IV PRN ×2 (10:47→18:37)
[2017-05-06] MEDS: PROPOFOL 1,000 MG/100 ML BOTTLE IV SCH ×3 (14:42→23:45)
[2017-05-06 14:59] LABS: Hemoglobin 7.4 GM/DL (14.0-18.0)
[2017-05-06] MEDS: FLUCONAZOLE INJ 100 MG in IV BAG 1 EACH IV SCH (17:30)
[2017-05-06] MEDS ORDERED: CALCIUM GLUCONATE 2,000 MG in SODIUM CHLORIDE 0.9% 100 ML IV ONE (19:10)
[2017-05-06] MEDS: POTASSIUM CHLORIDE RIDER 20 MEQ in PREMIX 1 EACH IV SCH ×3 (19:58→23:47)
[2017-05-07] MEDS: VASOPRESSIN 100 UNITS in SODIUM CHLORIDE 0.9% 95 ML IV SCH ×5 (00:09→15:10)
[2017-05-07] MEDS: NOREPINEPHRINE 16 MG in SODIUM CHLORIDE 0.9% 234 ML IV SCH ×2 (00:11→20:25)
[2017-05-07] MEDS: METOCLOPRAMIDE 10 MG/2 ML VIAL IV SCH ×4 (00:13→17:24)
[2017-05-07] MEDS: PANTOPRAZOLE INJ 200 MG in SODIUM CHLORIDE 0.9% 250 ML IV SCH (04:03)
[2017-05-07 04:05] LABS: ABG HCO3 20.2 MMOL/L (20-26); ABG Oxygen Saturation 95.2 % (95-100); ABG PH 7.295 (7.35-7.45); ABG PO2 76.3 MM HG (80-95); ABG TCO2 19.5 MMOL/L (23-27)
[2017-05-07 04:06] LABS: Basophils # 0.1 10*3/uL (0.0-0.2); Basophils % 0.2 % (0.0-0.8); Eosinophils # 0.1 10*3/uL (0.0-0.87); Eosinophils % 0.6 % (0.00-10.9); Hematocrit 31.6 VOL% (42.0-52.0); Hemoglobin 11.1 GM/DL (14.0-18.0); Immature Granulocytes % 1.1 %; Immature Granulocytes Absolute 0.25 #; Lymphocytes # 0.9 10*3/uL (1.4-4.0); Mean Corpuscular HGB Conc 35.1 GM/DL (32-36); Mean Corpuscular Hemoglobin 30 PG (27-34); Mean Corpuscular Volume 85.6 FL (87-102); Mean Platelet Volume 11.4 FL (9.6-12.0); Monocytes # 0.6 10*3/uL (0.11-0.8); Monocytes % 2.7 % (1.7-12.7); NRBC # 0.09 10*3/uL; Neutrophils # 20.3 10*3/uL (1.4-7.4); Neutrophils % 91.4 % (38.7-73.9); Platelet Count 108 T/CUMM (130-400); Red Blood Count 3.69 MC/CUMM (3.8-5.5); Red Cell Distribution Width 14.8 % (9.3-17.3); White Blood Count 22.2 T/CUMM (4-12)
[2017-05-07] MEDS: MORPHINE 2 MG/1 ML SYRINGE IV PRN ×3 (04:15→20:13)
[2017-05-07 04:16] LABS: INR 1.1; PT Patient Result 11.2 SECS; Partial Thromboplastin Time 34.1 SECS (0-40)
[2017-05-07] MEDS: PIPERACILLIN/TAZOBACTAM 3,375 MG in SODIUM CHLORIDE 0.9% 100 ML IV SCH ×3 (04:18→20:13)
[2017-05-07 04:43] LABS: Alanine Aminotransferase 446 U/L (16-61); Alkaline Phosphatase 77 U/L (45-117); Aspartate Amino Transferase 727 U/L (0-37); Bilirubin,Total < 0.39 MG/DL (0.2-1.0); Blood Urea Nitrogen 17 MG/DL (7-18); Glucose 81 MG/DL (74-106); Osmolality,Calculated 299.9 MOS/KG (273-304); Potassium 3.8 MMOL/L (3.5-5.1); Sodium 151 MMOL/L (136-145); Total Protein 2.7 G/DL (6.4-8.3)
[2017-05-07 04:48] LABS: Calcium 5.6 MG/DL (8.5-10.1)
[2017-05-07] MEDS ORDERED: CALCIUM CHLORIDE 1,000 MG/10 ML SYRINGE IV ONE ×2 (04:53→09:00)
[2017-05-07] MEDS ORDERED: MAGNESIUM SULF RIDER 2 GM in PREMIX 1 EACH IV ONE (05:03)
[2017-05-07 05:20] LABS: Band Neutrophils 1 % (0-10); Eosinophils 2 % (0-10); Lymphocytes 6 % (20-55); Segmented Neutrophils 89 % (50-85); Total Cells Counted 100
[2017-05-07 05:21] LABS: Platelet Estimate Adequate
[2017-05-07] MEDS ORDERED: CALCIUM GLUCONATE 2,000 MG in SODIUM CHLORIDE 0.9% 100 ML IV ONE ×2 (06:00→09:00)
[2017-05-07] MEDS: SODIUM BICARB INJ 150 MEQ in STERILE WATER INJ 850 ML IV SCH ×2 (07:11→15:08)
[2017-05-07] MEDS: COLLAGENASE OINT 30 GM TUBE TOP SCH (09:49)
[2017-05-07] MEDS: PROPOFOL 1,000 MG/100 ML BOTTLE IV SCH ×2 (09:58→18:44)
[2017-05-07] MEDS: INSULIN LISPRO 100 UNIT/ML SUBCUT SCH ×3 (10:11→18:16)
[2017-05-07 12:42] LABS: Calcium 7.1 MG/DL (8.5-10.1); Magnesium 1.5 MG/DL (1.8-2.4); Osmolality,Calculated 301.7 MOS/KG (273-304); Potassium 3.7 MMOL/L (3.5-5.1)
[2017-05-07] MEDS ORDERED: ELECTROLYTE IV SCH (17:00)
[2017-05-07] MEDS ORDERED: DEXTROSE 10% 1,000 ML IV PRN (17:00)
[2017-05-07] MEDS ORDERED: POTASSIUM PHOSPHATE IV SCH (17:00)
[2017-05-07] MEDS ORDERED: [UNRECOGNIZED DRUG - OTHER] IV SCH (17:00)
[2017-05-07] MEDS: FLUCONAZOLE INJ 100 MG in IV BAG 1 EACH IV SCH (18:16)
[2017-05-08] MEDS: SODIUM BICARB INJ 150 MEQ in STERILE WATER INJ 850 ML IV SCH ×3 (01:23→22:00)
[2017-05-08] MEDS: METOCLOPRAMIDE 10 MG/2 ML VIAL IV SCH ×4 (01:33→18:46)
[2017-05-08] MEDS: INSULIN LISPRO 100 UNIT/ML SUBCUT SCH ×4 (01:33→18:42)
[2017-05-08] MEDS: PROPOFOL 1,000 MG/100 ML BOTTLE IV SCH ×3 (04:03→18:47)
[2017-05-08 04:14] LABS: ABG Base Excess -4.4 MMOL/L (-2.5-2.5); ABG HCO3 20.7 MMOL/L (20-26); ABG Oxygen Saturation 93.6 % (95-100); ABG PCO2 40.6 MM HG (35-48); ABG PH 7.327 (7.35-7.45); ABG PO2 71.5 MM HG (80-95); ABG TCO2 19.5 MMOL/L (23-27)
[2017-05-08] MEDS: PIPERACILLIN/TAZOBACTAM 3,375 MG in SODIUM CHLORIDE 0.9% 100 ML IV SCH ×3 (04:27→21:32)
[2017-05-08 05:07] LABS: Magnesium 1.7 MG/DL (1.8-2.4); Phosphorous 5.4 MG/DL (2.5-4.9); Prealbumin 5.7 MG/DL (20-40)
[2017-05-08] MEDS: NOREPINEPHRINE 16 MG in SODIUM CHLORIDE 0.9% 234 ML IV SCH (06:48)
[2017-05-08] MEDS ORDERED: FUROSEMIDE 40 MG/4 ML VIAL IV ONE (08:08)
[2017-05-08 09:10] LABS: Basophils % 0.2 % (0.0-0.8); Eosinophils # 0.1 10*3/uL (0.0-0.87); Eosinophils % 0.9 % (0.00-10.9); Hematocrit 26.7 VOL% (42.0-52.0); Hemoglobin 9.6 GM/DL (14.0-18.0); Immature Granulocytes % 1.6 %; Immature Granulocytes Absolute 0.22 #; Lymphocytes # 0.7 10*3/uL (1.4-4.0); Lymphocytes % 5.2 % (21.2-54.2); Mean Corpuscular Hemoglobin 30 PG (27-34); Mean Corpuscular Volume 84.2 FL (87-102); Mean Platelet Volume 11.2 FL (9.6-12.0); Monocytes # 0.2 10*3/uL (0.11-0.8); Monocytes % 1.6 % (1.7-12.7); NRBC # 0.03 10*3/uL; Neutrophils # 12.7 10*3/uL (1.4-7.4); Neutrophils % 90.5 % (38.7-73.9); Platelet Count 157 T/CUMM (130-400); Red Blood Count 3.17 MC/CUMM (3.8-5.5); Red Cell Distribution Width 15.1 % (9.3-17.3); White Blood Count 14.1 T/CUMM (4-12)
[2017-05-08] MEDS: MORPHINE 2 MG/1 ML SYRINGE IV PRN (09:25)
[2017-05-08] MEDS: COLLAGENASE OINT 30 GM TUBE TOP SCH (09:26)
[2017-05-08 09:40] LABS: Calcium 6.3 MG/DL (8.5-10.1); Magnesium 1.7 MG/DL (1.8-2.4); Osmolality,Calculated 308.1 MOS/KG (273-304); Potassium 3.3 MMOL/L (3.5-5.1)
[2017-05-08] MEDS ORDERED: MAGNESIUM SULF RIDER 2 GM in PREMIX 1 EACH IV ONE (10:16)
[2017-05-08] MEDS ORDERED: ALBUMIN 25% 25 GM in PREMIX 1 EACH IV ONE (10:18)
[2017-05-08] MEDS ORDERED: MAGNESIUM SULF RIDER 4 GM in PREMIX 1 EACH IV ONE (10:57)
[2017-05-08] MEDS ORDERED: CALCIUM GLUCONATE 2,000 MG in SODIUM CHLORIDE 0.9% 100 ML IV ONE (11:30)
[2017-05-08] MEDS: FLUCONAZOLE INJ 100 MG in IV BAG 1 EACH IV SCH (18:16)
[2017-05-08] MEDS: ELECTROLYTE CONCENTRATE 20 ML, TRACE ELEMENTS (5) 1 ML, MULTIVITAMIN INJ 10 ML, INSULIN... IV SCH (18:16)
[2017-05-08] MEDS: PANTOPRAZOLE 40 MG VIAL IV SCH (21:31)
[2017-05-09] MEDS: INSULIN LISPRO 100 UNIT/ML SUBCUT SCH ×4 (00:26→20:50)
[2017-05-09] MEDS: METOCLOPRAMIDE 10 MG/2 ML VIAL IV SCH ×4 (00:26→20:50)
[2017-05-09] MEDS: PROPOFOL 1,000 MG/100 ML BOTTLE IV SCH ×2 (04:39→21:00)
[2017-05-09] MEDS: NOREPINEPHRINE 16 MG in SODIUM CHLORIDE 0.9% 234 ML IV SCH ×2 (05:05→23:44)
[2017-05-09] MEDS: PIPERACILLIN/TAZOBACTAM 3,375 MG in SODIUM CHLORIDE 0.9% 100 ML IV SCH ×3 (05:47→21:34)
[2017-05-09] MEDS: PANTOPRAZOLE 40 MG VIAL IV SCH ×2 (08:21→21:24)
[2017-05-09] MEDS: COLLAGENASE OINT 30 GM TUBE TOP SCH (08:21)
[2017-05-09] MEDS: SODIUM BICARB INJ 150 MEQ in STERILE WATER INJ 850 ML IV SCH (08:27)
[2017-05-09 11:51] LABS: Calcium 6.6 MG/DL (8.5-10.1); Osmolality,Calculated 305.1 MOS/KG (273-304); Potassium 2.9 MMOL/L (3.5-5.1)
[2017-05-09] MEDS: ELECTROLYTE CONCENTRATE 20 ML, TRACE ELEMENTS (5) 1 ML, MULTIVITAMIN INJ 10 ML, INSULIN... IV SCH (12:27)
[2017-05-09] MEDS: FLUCONAZOLE INJ 100 MG in IV BAG 1 EACH IV SCH (17:27)
[2017-05-10] MEDS: INSULIN LISPRO 100 UNIT/ML SUBCUT SCH ×4 (01:18→17:29)
[2017-05-10] MEDS: METOCLOPRAMIDE 10 MG/2 ML VIAL IV SCH (01:18)
[2017-05-10 02:23] LABS: ABG Base Excess 3.1 MMOL/L (-2.5-2.5); ABG HCO3 27.2 MMOL/L (20-26); ABG Oxygen Saturation 97.3 % (95-100); ABG PCO2 36.7 MM HG (35-48); ABG PO2 87.5 MM HG (80-95); ABG TCO2 23.6 MMOL/L (23-27)
[2017-05-10 03:57] LABS: Basophils % 0.4 % (0.0-0.8); Eosinophils % 0.3 % (0.00-10.9); Hemoglobin 9.4 GM/DL (14.0-18.0); Immature Granulocytes % 0.3 %; Immature Granulocytes Absolute 0.02 #; Lymphocytes # 0.3 10*3/uL (1.4-4.0); Lymphocytes % 4.2 % (21.2-54.2); Mean Corpuscular HGB Conc 36.2 GM/DL (32-36); Mean Corpuscular Hemoglobin 30 PG (27-34); Mean Corpuscular Volume 81.8 FL (87-102); Mean Platelet Volume 10.3 FL (9.6-12.0); Monocytes # 0.1 10*3/uL (0.11-0.8); Monocytes % 1.3 % (1.7-12.7); NRBC # 0.05 10*3/uL; Neutrophils # 6.6 10*3/uL (1.4-7.4); Neutrophils % 93.5 % (38.7-73.9); Platelet Count 189 T/CUMM (130-400); Red Blood Count 3.18 MC/CUMM (3.8-5.5); White Blood Count 7.1 T/CUMM (4-12)
[2017-05-10 04:25] LABS: Alanine Aminotransferase 198 U/L (16-61); Albumin 1.1 G/DL (3.4-5.0); Alkaline Phosphatase 92 U/L (45-117); Aspartate Amino Transferase 129 U/L (0-37); Bilirubin,Total < 0.39 MG/DL (0.2-1.0); Blood Urea Nitrogen 38 MG/DL (7-18); Calcium 6.7 MG/DL (8.5-10.1); Glucose 114 MG/DL (74-106); Osmolality,Calculated 310.7 MOS/KG (273-304); Potassium 3.1 MMOL/L (3.5-5.1); Sodium 152 MMOL/L (136-145); Total Protein 3.9 G/DL (6.4-8.3)
[2017-05-10 04:26] LABS: Magnesium 2.5 MG/DL (1.8-2.4); Phosphorous 2.4 MG/DL (2.5-4.9); Prealbumin 4.5 MG/DL (20-40)
[2017-05-10 04:38] LABS: Band Neutrophils 25 % (0-10); Hypochromasia 1+; Lymphocytes 3 % (20-55); Metamyelocytes 2 %; Nucleated Red Blood Cells 3 (0-5); Platelet Estimate Normal; Segmented Neutrophils 68 % (50-85); Total Cells Counted 100
[2017-05-10 04:39] LABS: Giant Platelets Few
[2017-05-10] MEDS ORDERED: POTASSIUM CHLORIDE INJ 40 MEQ in DEXTROSE 5% 1,000 ML IV SCH (05:30)
[2017-05-10] MEDS ORDERED: LORazepam 2 MG/1 ML VIAL ONE ×2 (05:57→15:22)
[2017-05-10] MEDS ORDERED: LORazepam 2 MG/1 ML VIAL IV ONE ×2 (06:03→06:11)
[2017-05-10] MEDS: PIPERACILLIN/TAZOBACTAM 3,375 MG in SODIUM CHLORIDE 0.9% 100 ML IV SCH ×3 (06:28→21:27)
[2017-05-10] MEDS: ELECTROLYTE CONCENTRATE 20 ML, TRACE ELEMENTS (5) 1 ML, MULTIVITAMIN INJ 10 ML, INSULIN... IV SCH ×2 (08:17→11:26)
[2017-05-10] MEDS: PANTOPRAZOLE 40 MG VIAL IV SCH ×2 (09:40→21:31)
[2017-05-10] MEDS: COLLAGENASE OINT 30 GM TUBE TOP SCH (09:41)
[2017-05-10] MEDS ORDERED: POTASSIUM CHLORIDE RIDER 10 MEQ in PREMIX 1 EACH IV PRN (11:18)
[2017-05-10] MEDS ORDERED: POTASSIUM CHLORIDE RIDER 20 MEQ in PREMIX 1 EACH IV PRN (11:18)
[2017-05-10 13:17] LABS: Calcium 6.6 MG/DL (8.5-10.1); Potassium 3.3 MMOL/L (3.5-5.1)
[2017-05-10] MEDS ORDERED: EPINEPHrine 1 MG/10 ML SYRINGE ONE (14:29)
[2017-05-10] MEDS ORDERED: PROPOFOL 200 MG/20 ML VIAL IV ONE (14:29)
[2017-05-10] MEDS ORDERED: LIDOCAINE 1% 5 ML VIAL ONE (14:29)
[2017-05-10] MEDS ORDERED: PHENYLEPHRINE 1 MG/10 ML SYRINGE IV ONE (14:29)
[2017-05-10] MEDS ORDERED: NOREPINEPHRINE 4 MG/4 ML VIAL IV ONE (14:37)
[2017-05-10] MEDS ORDERED: PHENYLEPHRINE DRIP 0 MG/0 ML PREMIX IV ONE (14:47)
[2017-05-10] MEDS ORDERED: EPINEPHrine 1 MG/ML VIAL ONE ×2 (15:08→15:09)
[2017-05-10] MEDS: NOREPINEPHRINE 8 MG in SODIUM CHLORIDE 0.9% 242 ML IV SCH ×2 (15:10→17:02)
[2017-05-10] MEDS ORDERED: LACTATED RINGERS 1,000 ML IV ONE (15:23)
[2017-05-10] MEDS ORDERED: PHENYLEPHRINE DRIP 40 MG/250 ML PREMIX IV ONE ×2 (15:25→20:58)
[2017-05-10] MEDS ORDERED: SODIUM CHLORIDE 0.9% 250 ML IV PRN ×2 (15:43→20:56)
[2017-05-10] MEDS: LORazepam 2 MG/1 ML VIAL IV PRN ×2 (15:50→20:34)
[2017-05-10 16:53] LABS: Hematocrit 18.1 VOL% (42.0-52.0)
[2017-05-10] MEDS: NOREPINEPHRINE 16 MG in SODIUM CHLORIDE 0.9% 234 ML IV SCH (16:57)
[2017-05-10] MEDS ORDERED: ELECTROLYTE CONCENTRATE 20 ML, TRACE ELEMENTS (5) 1 ML, MULTIVITAMIN INJ 10 ML, POTASSI... IV SCH (17:00)
[2017-05-10 17:04] LABS: Hemoglobin 6.3 GM/DL (14.0-18.0)
[2017-05-10] MEDS: FLUCONAZOLE INJ 100 MG in IV BAG 1 EACH IV SCH (17:32)
[2017-05-10 18:54] LABS: Calcium 6.4 MG/DL (8.5-10.1); Osmolality,Calculated 313.9 MOS/KG (273-304); Potassium 4.6 MMOL/L (3.5-5.1)
[2017-05-10] MEDS ORDERED: ALBUMIN 25% 12.5 GM in PREMIX 1 EACH IV SCH (19:00)
[2017-05-10] MEDS ORDERED: SODIUM CHLORIDE 0.9% 1,000 ML IV ONE (20:55)
[2017-05-10] MEDS ORDERED: PHENYLEPHRINE DRIP 40 MG/250 ML PREMIX IV SCH (21:00)
[2017-05-10] MEDS: DEXTROSE 5% 1,000 ML IV SCH ×2 (21:20→21:21)
[2017-05-10] MEDS: PROPOFOL 1,000 MG/100 ML BOTTLE IV SCH (21:21)
[2017-05-10] MEDS ORDERED: MORPHINE 2 MG/1 ML SYRINGE IV PRN (21:31)
[2017-05-10 22:32] VITALS: BP 88/48
== END 2017-05-10 21:38 | disposition expired | DRG 870 ==
LOC: EDUNIT# → N.ED 07:36 → SUATTDRO 08:30 → N.EDINP 08:51 → N.CC 09:28
PROVIDERS: ADMIT Hospitalist; ATTEND Internal Medicine
PROC: EGDWEBL (ICD-10-PCS; 2017-05-10 07:35)